=== PATIENT | male | born 1945 | race Caucasian/White ===

== ENCOUNTER 2021-08-30 13:40 | Emergency (ER) | payer MEDICARE ==
[~2021-08-30] VITALS: Ht 165.1 cm; Wt 65.5 kg
[2021-08-30] MEDS ORDERED: METF-1211 PO (13:49)
[2021-08-30] MEDS ORDERED: SEMA0.25 SQ (13:49)
[2021-08-30] MEDS ORDERED: LISI-893 PO (13:49)
[2021-08-30] MEDS ORDERED: ATOR10TA84 PO (13:49)
[2021-08-30 14:06] LABS: GLUCOMETER DEV NAME(LOC) ERT.5; GLUCOSE,POINT OF CARE 211 MG/DL (70-110)
[2021-08-30] MEDS ORDERED: KETOROLAC TROMETHAMINE 10 MG TABLET PO ONE (14:30)
[2021-08-30] MEDS ORDERED: GABA-1181 PO (20:21)
[2021-08-30 20:35] VITALS: BP 121/65
== END 2021-08-30 21:09 | disposition home or self-care (01) ==
LOC: EMS 13:45
DX: S42.201A Unspecified fracture of upper end of right humerus, initial encounter for closed fracture (principal); E11.9 Type 2 diabetes mellitus without complications; E78.00 Pure hypercholesterolemia, unspecified; I10 Essential (primary) hypertension; W19.XXXA Unspecified fall, initial encounter; Y93.89 Activity, other specified; Y92.009 Unspecified place in unspecified non-institutional (private) residence as the place of occurrence of the external cause; Y99.8 Other external cause status
CPT/HCPCS: 82962; 99284